=== PATIENT | male | born 1950 | race Caucasian/White ===

== ENCOUNTER → 2017-03-30 | Outpatient (CLI) | payer OTHER, MEDICAID | LOC: BHFA 15:30 | PROVIDERS: ATTEND Internal Medicine Cardiovascular Disease | DX: I48.91 Unspecified atrial fibrillation (principal); Z95.810 Presence of automatic (implantable) cardiac defibrillator ==

== ENCOUNTER 2017-04-13 09:24 | Day surgery (SDC) | payer OTHER, MEDICAID ==
[~2017-04-13 09:24] MED LIST: BACITRACIN IRRIGATION/NS 50,000 UNITS/1,000 ML BTL IRR ONE; DIAZEPAM 5 MG TAB PO ONE; NS 1,000 ML IV ONE; diphenhydrAMINE 25 MG CAP PO ONE
--- NOTE | 2017-04-13 09:51 | CPEKG ---
Heart Rate: 65 RR Interval: 923 P-R Interval: 200 QRSD Interval: 98 QT Interval: 372 QTC Interval: 387 P [facility]: 71 QRS [facility]: 62 T Wave [facility]: 206 EKG Severity - ABNORMAL ECG - EKG Impression: SINUS RHYTHM EKG Impression: Query lead misplacement with reversed R-wave progression EKG Impression: CONSIDER ANTERIOR INFARCT EKG Impression: NONSPECIFIC T ABNORMALITIES, LATERAL LEADS Electronically Signed By: Elmer Ayon 13-Apr-2017 16:50:57
[2017-04-13] MEDS ORDERED: VANCOMYCIN HCL/NORMAL SALINE 250 ML IV ONE (10:00)
[2017-04-13 10:10] LABS: % IMMATURE GRANULYOCYTES 1.4 % (0.0-1.1); ABSOLUTE IMMATURE GRANULOCYTES 0.16 10^3/uL (0.00-0.10); ADD DIFF? NO; ADD MORPH? NO; ADD SCAN? NO; ATYPICAL LYMPHOCYTE FLAG 10 (0-99); FRAGMENT RBC FLAG 0 (0-99); HEMATOCRIT 56.8 % (40.0-51.0); HEMOGLOBIN 19.3 g/dL (13.7-17.5); LEFT SHIFT FLG 10 (0-99); LIPEMIA HEMOLYSIS FLAG 90 (0-99); MEAN CELL HEMOGLOBIN 28.5 pg (27.9-34.1); MEAN CELL VOLUME 83.9 fL (81.5-99.8); MEAN PLATELET VOLUME 9.3 fL (8.7-11.7); PLATELET CLUMPS FLAG 10 (0-99); PLATELET COUNT 283 10^3/uL (150-400); RED BLOOD CELL COUNT 6.77 10^6/uL (4.40-6.38); RED CELL DISTRIBUTION WIDTH 15.4 % (11.5-15.2)
[2017-04-13 10:39] LABS: ANION GAP 14 mEq/L (8-16); CALCIUM 10.3 mg/dL (8.5-10.4); CARBON DIOXIDE 25 mEq/l (22-31); CHLORIDE 100 mEq/L (97-110); CREATININE 1.5 mg/dL (0.7-1.3); GLOMERULAR FILTRATION RATE 47; GLUCOSE 209 mg/dL (70-100); POTASSIUM 4.6 mEq/L (3.5-5.2); SODIUM 139 mEq/L (134-144)
[2017-04-13] MEDS ORDERED: LIDO/EPI 1% **for epidural** 30 ML SDV ONE (10:55)
[2017-04-13] MEDS ORDERED: fentaNYL 100 MCG/2 ML INJ ONE ×2 (10:55→12:20)
[2017-04-13] MEDS ORDERED: BUPIVACAINE 0.5% 30 ML SDV ONE (10:55)
[2017-04-13] MEDS ORDERED: LIDOCAINE 1% 300 MG/30 ML SDV ONE (10:55)
[2017-04-13] MEDS ORDERED: MIDAZOLAM 2 MG/2 ML VIAL ONE (10:55)
[2017-04-13 11:10] LABS: INR 1.11 (0.83-1.16); PROTIME(PATIENT) 14.2 SEC (12.0-15.0)
[2017-04-13] MEDS ORDERED: PROPOFOL 200 MG/20 ML VIAL ONE (12:52)
--- NOTE | 2017-04-14 13:40 | EPPROC ---
Electrophysiology Procedure Note: PROCEDURE PERFORMED: 1. Explantation of an A-V Implantable Cardioverter Defibrillator 2. Implantation of an A-V Implantable Cardioverted Defibrillator INDICATION: ICD Generator at BEE Cardiomyopathy PROCEDURE NOTE: Patient presented to the cardiac catherization laboratory in a fasting, postabsorptive state. Moderate sedation administered. The left infraclavicular area was prepped and draped in the usual sterile fashion. Lidocaine plus bupivacaine was used for local anesthesia. Using a combination of blunt and sharp dissection and electrocautery, the dissection was carried down to the prepectoral fascia and the existing ICD pocket was opened. The ICD generator was disconnected from the leads and the lead thresholds and impedance were checked. The ICD pocket was copiously irrigated with antibiotic solution. The pocket was again inspected for any bleeding. The leads were attached to the ICD securely. The ICD was inserted into the pocket and secured in place with a nonabsorbable suture. The ICD pocket was closed in 3 layers with absorbable monocryl sutures. Appropriate dressing was applied. The patient left the cardiac catheterization laboratory in stable condition. Serial Numbers: 1. Implanted Device: Medtronic EVERA SN [id number] 2. Atrial Lead: Medtronic 4076 [id number] 3. Ventricular Lead: Medtronic 6947 [id number] 5. Removed Device: Medtronic Secura SN [id number] Stimulation Thresholds & Impedance Measurements: 1. Atrial Lead 4.4mV, 1.25@0.4ms, 570Ohms 2. Ventricular Lead 17.8mV, 1@0.4ms, 494Ohms 3. Coronary sinus Lead Pacing Parameters: 1. Pacing mode: DDD 2. Lower rate: 60 3. Upper tracking rate: 120 4. Upper sensor rate: 120 Tachycardia therapy parameters: VF zone : Detection 214 bpm First therapy 25 Joule Subsequent therapies 35 Joule VT zone : Detection 188 bpm First therapy burst pacing at 88% tachycardia CL, 8 beats, 3 sequences Second therapy 20 Joule Subsequent therapies 25 Joule X 1 Subsequent therapies 35 Joule X 4
== END 2017-04-13 16:00 | disposition home or self-care (01) ==
LOC: FCATH 09:24
PROVIDERS: ATTEND Internal Medicine Cardiovascular Disease
DX: Z45.02 Encounter for adjustment and management of automatic implantable cardiac defibrillator (principal); I25.5 Ischemic cardiomyopathy; I10 Essential (primary) hypertension; E78.5 Hyperlipidemia, unspecified; E11.9 Type 2 diabetes mellitus without complications; Z79.01 Long term (current) use of anticoagulants; Z87.891 Personal history of nicotine dependence
CPT/HCPCS: C1721; J2250; J2704; J3010; J3370